=== PATIENT | male | born 1945 | race Caucasian/White ===

== ENCOUNTER → 2020-03-04 | Outpatient (CLI) | payer MEDICARE | LOC: SJCVC 14:27 | PROVIDERS: ATTEND Internal Medicine Cardiovascular Disease | DX: I25.10 Atherosclerotic heart disease of native coronary artery without angina pectoris (principal); I48.91 Unspecified atrial fibrillation; I45.10 Unspecified right bundle-branch block; I10 Essential (primary) hypertension; E78.00 Pure hypercholesterolemia, unspecified; Z79.899 Other long term (current) drug therapy; Z87.891 Personal history of nicotine dependence ==

== ENCOUNTER → 2020-05-25 | Outpatient (CLI) | payer OTHER | LOC: SJCVC 10:30 | PROVIDERS: ATTEND Internal Medicine Cardiovascular Disease | DX: I48.91 Unspecified atrial fibrillation (principal); I25.10 Atherosclerotic heart disease of native coronary artery without angina pectoris; I10 Essential (primary) hypertension; E78.5 Hyperlipidemia, unspecified; E78.00 Pure hypercholesterolemia, unspecified; Z95.5 Presence of coronary angioplasty implant and graft; Z79.82 Long term (current) use of aspirin; Z79.899 Other long term (current) drug therapy; Z87.891 Personal history of nicotine dependence; Z86.16 Personal history of COVID-19 ==

== ENCOUNTER → 2020-06-11 | Outpatient (CLI) | payer OTHER ==
[~2020-06-11] MED LIST: ASA81BEC PO; AVAPRO300 MG PO; CHLORTHALIDONE25 MG PO; CRESTOR40 MG PO; NITROSTAT0.4 M1 SUBLING; NORVASC5 MG PO; OMEPRAZOLE 20 M20 M1 PO; TOPROL XL50 MG PO; XARELTO20 MG PO
[2020-06-11 09:27] LABS: ABSOLUTE NEUTROPHILS 4.1 thou/uL (1.4-8.2); BASOPHILS 1.5 % (0.0-2.0); EOSINOPHILS 4.7 % (0.0-3.0); HEMATOCRIT 45.1 % (42.0-52.0); HEMOGLOBIN 14.6 gm/dL (14.0-18.0); LYMPHOCYTES 23.9 % (24.0-44.0); MCHC 32.3 g/dL (28.0-37.0); MCV 86.7 fL (80.0-100.0); PLATELET COUNT 170 thou/uL (150-400); POLYS 59.9 % (36.0-66.0); RDW 14.4 % (10.5-14.5); WBC 6.9 thou/uL (4.0-11.0)
[2020-06-11 10:03] LABS: ALBUMIN 4.1 g/dL (3.4-5.0); CALCIUM 9.6 mg/dL (8.5-10.1); CREATININE 1.5 mg/dL (0.7-1.3); POTASSIUM 4.4 mmol/L (3.5-5.1); TOTAL BILIRUBIN 0.7 mg/dL (0.2-1.0); TOTAL PROTEIN 7.3 g/dL (6.4-8.2)
== END ==
LOC: CAT 08:51
PROVIDERS: ATTEND Internal Medicine Cardiovascular Disease
DX: Z01.818 Encounter for other preprocedural examination (principal); R91.8 Other nonspecific abnormal finding of lung field; I48.91 Unspecified atrial fibrillation

== ENCOUNTER → 2020-06-11 | Outpatient (CLI) | payer OTHER | LOC: LAB 10:59 | PROVIDERS: ATTEND Internal Medicine Cardiovascular Disease | DX: Z01.812 Encounter for preprocedural laboratory examination (principal); Z20.822 Contact with and (suspected) exposure to COVID-19 ==

== ENCOUNTER → 2020-06-16 | Outpatient (CLI) | payer OTHER ==
[~2020-06-16] VITALS: Ht 182.9 cm; Wt 99.8 kg
--- NOTE | ~2020-06-16 | P ---
[facility] [place] [address] PROCEDURE REPORT Name: STANLEY MURRAY Room #: REG [facility].#: [id number] Admission: 06/16/20 Attend Phys: Bereket Buitrago MD Discharge: Date of : 43 Report #: [id number] THIS REPORT FOR: cc: Meagan Parks Pamela D. DO Couchonnal,Bereket Hope MD ~ DATE OF SERVICE: 06/16/2020 PREOPERATIVE DIAGNOSIS: Atrial fibrillation. POSTOPERATIVE DIAGNOSIS: Atrial fibrillation. HISTORY: The patient is a 75-year-old male with history of recurrent atrial fibrillation, here for ablation. PROCEDURES PERFORMED: 1. Atrial fibrillation ablation, CPT code 46305. 2. 3D mapping, CPT code 37438. 3. Intracardiac echo, CPT code 17552. 4. Focal ablation, CPT code 16222. ANESTHESIA: The patient underwent general anesthesia with no anesthesia related complications. DESCRIPTION OF PROCEDURE: The patient underwent informed consent. We discussed the details of the procedure including the risks, which include but not limited to bleeding, infection, vascular damage, cardiac perforation, stroke, [place]. He understood these risks and is willing to proceed. The patient was brought to EP laboratory in fasting and sedated state, prepped and draped in a sterile fashion. I injected lidocaine to the right groin region, obtained access to the right femoral vein x 3, placing an 8, 9 and 7-Paraguayan short sheath using the modified Seldinger technique. Next, under fluoroscopy, decapolar catheter was placed in the coronary sinus for left atrial pacing and recording and later was positioned at the subclavian vein for phrenic nerve pacing. An intracardiac ultrasound catheter was placed in the right atrium and the patient had nice thin interatrial septum. He had a left common ostium and two right pulmonary veins. These were merged with the cardiac CT scan. Next, at baseline, the patient was in sinus rhythm. He was heparinized and a transseptal was performed using an SL1 sheath and a [place] needle. This was straightforward and then exchanged for the cryo sheath and placed a Lasso catheter into the left atrium. A detailed 3D voltage map and 3D geometry of the left atrium was created and started by isolating the left common ostium with the cryo balloon. Of note, this was a big vessel and my initial attempts to occlude the vein were unsuccessful and given very good temps. Therefore, I decided to [facility] [address] [place] [address] PROCEDURE REPORT Name: STANLEY MURRAY [facility] [id number] Admission: 06/16/20 Attend Phys: Bereket Buitrago MD Discharge: Date of : 43 Report #: [id number] perform a segmental ablation of the common ostium. I performed a total of 5 freezes, each of 4 minutes' duration. Temps were in the mid 30s range. On my final freeze which was along the inferior aspect of the pulmonary vein ostia, the vein isolated within 60 seconds and a 4-minute freeze was performed at this position. Next, I went to the right-sided veins, phrenic nerve pacing was performed from the decapolar catheter. The right superior pulmonary vein underwent a 4-minute freeze and this vein isolated in 65 seconds. Right inferior pulmonary vein underwent a 270-second freeze. This vein isolated within 100 seconds. A repeat voltage map was created and demonstrated that all pulmonary veins were isolated. There were still extensive fractionated atrial signals along the posterior roof region and therefore, I decided to perform a posterior roofline. I performed 4 freezes of the roof anchored from the left common ostium. A repeat voltage map demonstrated that this cleaned up nicely. There were still some slight signals near the common ostium. As such, we obtained a good result and the procedure was concluded. Catheters were pulled to the right atrium. The patient received systemic protamine and then sheaths were pulled and hemostasis was obtained with a [id number] suture deployed to the right groin region. The patient awoke neurologically and hemodynamically intact with no complications and no significant bleeding. CONCLUSIONS: 1. Successful atrial fibrillation ablation with isolation of the pulmonary veins. 2. Successful posterior roofline. By: [id number] Bereket Buitrago MD /nt
[2020-06-16 07:14] VITALS: BP 125/63
[2020-06-16 07:28] LABS: ABSOLUTE NEUTROPHILS 3.5 thou/uL (1.4-8.2); BASOPHILS 1.4 % (0.0-2.0); EOSINOPHILS 4.4 % (0.0-3.0); HEMATOCRIT 42.4 % (42.0-52.0); HEMOGLOBIN 13.9 gm/dL (14.0-18.0); LYMPHOCYTES 28.6 % (24.0-44.0); MCHC 32.7 g/dL (28.0-37.0); MCV 85.5 fL (80.0-100.0); MONOCYTES 10.9 % (1.0-8.0); PLATELET COUNT 162 thou/uL (150-400); POLYS 54.7 % (36.0-66.0); RBC 4.96 mil/uL (4.50-6.00); WBC 6.4 thou/uL (4.0-11.0)
[2020-06-16 07:34] LABS: CALCIUM 9.2 mg/dL (8.5-10.1); CREATININE 1.6 mg/dL (0.7-1.3); POTASSIUM 4.7 mmol/L (3.5-5.1)
[2020-06-16 07:39] LABS: INR 1.1; PROTIME 11.4 Seconds (9.3-11.4)
[2020-06-16 07:40] LABS: ALBUMIN 3.9 g/dL (3.4-5.0); TOTAL BILIRUBIN 0.4 mg/dL (0.2-1.0)
== END | disposition home or self-care (01) ==
LOC: CATH 06:20
PROVIDERS: ATTEND Internal Medicine Cardiovascular Disease
DX: I48.91 Unspecified atrial fibrillation (principal); I10 Essential (primary) hypertension; I25.10 Atherosclerotic heart disease of native coronary artery without angina pectoris; E78.5 Hyperlipidemia, unspecified; Z98.890 Other specified postprocedural states; Z79.899 Other long term (current) drug therapy; Z20.822 Contact with and (suspected) exposure to COVID-19; Z87.891 Personal history of nicotine dependence; Z82.49 Family history of ischemic heart disease and other diseases of the circulatory system; Z79.82 Long term (current) use of aspirin; Z79.01 Long term (current) use of anticoagulants
CPT/HCPCS: 62110; 62900; 65020; 65040; 70005

== ENCOUNTER → 2020-06-24 | Outpatient (CLI) | payer OTHER | LOC: SJCVC 13:33 | PROVIDERS: ATTEND Internal Medicine Cardiovascular Disease | DX: R94.31 Abnormal electrocardiogram [ECG] [EKG] (principal); I45.2 Bifascicular block; I48.0 Paroxysmal atrial fibrillation; I25.10 Atherosclerotic heart disease of native coronary artery without angina pectoris; I45.10 Unspecified right bundle-branch block; I10 Essential (primary) hypertension; E78.5 Hyperlipidemia, unspecified; E78.00 Pure hypercholesterolemia, unspecified; Z86.16 Personal history of COVID-19; Z87.891 Personal history of nicotine dependence; Z72.89 Other problems related to lifestyle; Z79.899 Other long term (current) drug therapy; Z79.82 Long term (current) use of aspirin ==

== ENCOUNTER → 2020-08-26 | Outpatient (CLI) | payer OTHER | LOC: SJCVC 13:59 | PROVIDERS: ATTEND Internal Medicine Cardiovascular Disease | DX: I45.10 Unspecified right bundle-branch block (principal); R94.31 Abnormal electrocardiogram [ECG] [EKG]; R00.0 Tachycardia, unspecified; I48.3 Typical atrial flutter; I25.10 Atherosclerotic heart disease of native coronary artery without angina pectoris; I48.91 Unspecified atrial fibrillation; I10 Essential (primary) hypertension; E78.5 Hyperlipidemia, unspecified; I25.89 Other forms of chronic ischemic heart disease; Z79.82 Long term (current) use of aspirin; Z79.899 Other long term (current) drug therapy; Z87.891 Personal history of nicotine dependence; Z72.89 Other problems related to lifestyle; Z86.16 Personal history of COVID-19; Z95.5 Presence of coronary angioplasty implant and graft ==

== ENCOUNTER → 2020-08-30 | Outpatient (CLI) | payer OTHER | LOC: LAB 11:42 | PROVIDERS: ATTEND Internal Medicine Cardiovascular Disease | DX: Z01.812 Encounter for preprocedural laboratory examination (principal); Z20.822 Contact with and (suspected) exposure to COVID-19 ==

== ENCOUNTER → 2020-09-03 | Outpatient (CLI) | payer OTHER ==
[~2020-09-03] VITALS: Ht 182.9 cm; Wt 100.0 kg
[2020-09-03 07:31] VITALS: BP 111/87
--- NOTE | 2020-09-03 08:38 | TEE ---
[facility] [place] [address] TRANSESOPHAGEAL ECHOCARDIOGRAM Name: STANLEY MURRAY [id number] Admission: 09/03/20 Attend Phys: Chad Ingram MD, Discharge: Date of : 43 Report #: [id number] THIS REPORT FOR: cc: Meagan Parks Pamela D. DO Lundgren,Chad Lynn MD [facility] ~ APPROVED REPORT Study performed: 09/03/2020 07:39:17 EXAM: Transesophageal Echocardiogram with Doppler and cardioversion Patient Location: Out-Patient Room #: 9 Status: routine BSA: 2.22 HR: 115 bpm BP: 101/72 mmHg Rhythm: Atrial Flutter Other Information Study Quality: Excellent Indications Atrial flutter Echo Enhancing Agent Indication: Rule out Shunt Agent(s) / Amount(s) Used: Agitated Saline 7 cc Procedure After obtaining informed consent, patient underwent transesophageal echo in the [employer]. Type of Sedation : Conscious Sedation Sedation was administered by Rehana Magana RN. Sedation start time: 0800 Case end Time: 0810 Sedation was achieved intravenously with: Versed (4 mg) Fentanyl (50 mcg) Transesophageal probe was inserted and advanced into esophagus without difficulty by Chad Ingram MD. Echo enhancement indication: R/O Septal defect. Echo enhancement agent administered: Agitated Saline The CHANDNI was performed without complications. Synchronized Cardioversion acheived with 20 Joules after [address] [facility] [place] [address] [place] [address] TRANSESOPHAGEAL ECHOCARDIOGRAM Name: STANLEY MURRAY Room #: REG [facility]#: [id number] Admission: 09/03/20 Attend Phys: Chad Ingram, Discharge: Date of : 43 Report #: [id number] attempt(s). Rhythm following Synchronized Cardioversion: Normal Sinus Rhythm Throughout the procedure, the blood pressure, pulse oximetry, cardiac rhythm, and rate were monitored. The patient tolerated the procedure without adverse effects. Recovery from conscious sedation was uneventful and vital signs were stable. Left Ventricle The left ventricle is normal size. There is normal LV segmental wall motion. There is normal left ventricular wall thickness. The left ventricular systolic function is normal. The left ventricular ejection fraction is within the normal range. LVEF is 55-60%. Right Ventricle The right ventricle is normal size. The right ventricular systolic function is normal. Atria Left atrium is dilated. No thrombus is visualized in the left atrium or appendage. No shunting by contrast bubble injection Right atrium is dilated. Aortic Valve The aortic valve is normal in structure, trileaflet. No aortic regurgitation is present. There is no aortic valvular stenosis. Mitral Valve The mitral valve is normal in structure. Mild mitral regurgitation. No evidence of mitral valve stenosis. Tricuspid Valve The tricuspid valve is normal in structure. Trace to mild tricuspid regurgitation. Pulmonic Valve The pulmonary valve is normal in structure. There is no pulmonic valvular regurgitation. Great Vessels The aortic root is normal in size. IVC is normal in size and collapses >50% with inspiration. Pericardium There is no pericardial effusion. [facility] [address] [place] [address] TRANSESOPHAGEAL ECHOCARDIOGRAM Name: STANLEY MURRAY Room #: REG [facility].#: [id number] Admission: 09/03/20 Attend Phys: Chad Ingram, Discharge: Date of : 43 Report #: [id number] <Conclusion> The left ventricular systolic function is normal. There is normal LV segmental wall motion. LVEF is 55-60%. Both atria are dilated. No thrombus is visualized in the left atrium or appendage. No shunting by contrast bubble injection The aortic valve is normal in structure, trileaflet. No aortic regurgitation or stenosis The mitral valve is normal in structure. Mild mitral regurgitation. There is no pericardial effusion. Successful cardioversion of atrial flutter to sinus rhythm following a single 20 J biphasic, synchronous shock <ELECTRONICALLY SIGNED> By: Chad Ingram MD, [facility] 09/03/2038 7 7 Chad Ingram MD, FACC /INF
== END | disposition home or self-care (01) ==
LOC: CATH 06:25
PROVIDERS: ATTEND Internal Medicine
DX: I48.92 Unspecified atrial flutter (principal); I08.1 Rheumatic disorders of both mitral and tricuspid valves; I10 Essential (primary) hypertension; I25.10 Atherosclerotic heart disease of native coronary artery without angina pectoris; E78.5 Hyperlipidemia, unspecified; E66.9 Obesity, unspecified; Z98.890 Other specified postprocedural states; Z79.899 Other long term (current) drug therapy; Z79.01 Long term (current) use of anticoagulants; Z87.891 Personal history of nicotine dependence

== ENCOUNTER → 2020-09-21 | Outpatient (CLI) | payer OTHER ==
--- NOTE | ~2020-09-21 | P ---
[facility] [place] [address] PROCEDURE REPORT Name: STANLEY MURRAY Room #: REG [facility].#: [id number] Admission: 09/21/20 Attend Phys: Bereket Buitrago MD Discharge: Date of : 43 Report #: [id number] THIS REPORT FOR: cc: Meagan Parks Pamela D. DO Couchonnal, Luis F. MD ~ DOC #: [id number] Bereket Buitrago MD DATE OF SERVICE: 09/24/2020 IMPLANTABLE LOOP RECORDER INSERTION PREOPERATIVE DIAGNOSES: 1. Atrial fibrillation. 2. Presyncope. PROCEDURE PERFORMED: Implantable loop recorder insertion. DESCRIPTION OF PROCEDURE: The patient was prepped and draped in a standard fashion, injected lidocaine at the incision site. Incision was made. Device injected, tested and found to be functioning normally. Single layer of suture was performed and surgical glue was placed to outer skin layer. Dressing was placed. There were no procedural-related complications. The implanted device is a Singularu model #08920, serial #[id number]. CONCLUSION: Successful implantation of an implantable loop recorder. Bereket Buitrago MD LFC/KDA By: [id number] Bereket Buitrago MD /nt
[2020-09-21 07:13] VITALS: BP 121/67
== END | disposition home or self-care (01) ==
LOC: CATH 06:42
PROVIDERS: ATTEND Internal Medicine Cardiovascular Disease
DX: I48.91 Unspecified atrial fibrillation (principal); R55 Syncope and collapse; Z98.890 Other specified postprocedural states; Z79.899 Other long term (current) drug therapy; Z79.01 Long term (current) use of anticoagulants; Z79.82 Long term (current) use of aspirin

== ENCOUNTER → 2020-12-28 | Outpatient (CLI) | payer OTHER | LOC: CAT 10:02 | PROVIDERS: ATTEND Pediatrics | DX: J92.9 Pleural plaque without asbestos (principal); J43.8 Other emphysema; J84.10 Pulmonary fibrosis, unspecified; I25.10 Atherosclerotic heart disease of native coronary artery without angina pectoris; R91.8 Other nonspecific abnormal finding of lung field ==

== ENCOUNTER 2021-01-03 06:21 | Observation (INO) | payer OTHER ==
[~2021-01-03] VITALS: Ht 182.9 cm; Wt 99.8 kg
[2021-01-03 07:07] VITALS: BP 120/78
[2021-01-03] MEDS ORDERED: TOPROL XL100 MG PO (07:13)
[2021-01-03 07:43] LABS: ABSOLUTE NEUTROPHILS 4.2 thou/uL (1.4-8.2); BASOPHILS 1.2 % (0.0-2.0); EOSINOPHILS 3.1 % (0.0-3.0); HEMATOCRIT 43.8 % (42.0-52.0); HEMOGLOBIN 14.5 gm/dL (14.0-18.0); LYMPHOCYTES 26.8 % (24.0-44.0); MCH 27.9 pg (26.0-34.0); MCHC 33.1 g/dL (28.0-37.0); MCV 84.2 fL (80.0-100.0); MONOCYTES 10.7 % (1.0-8.0); PLATELET COUNT 181 thou/uL (150-400); POLYS 58.2 % (36.0-66.0); RDW 13.8 % (10.5-14.5); WBC 7.2 thou/uL (4.0-11.0)
[2021-01-03 07:53] LABS: CALCIUM 8.9 mg/dL (8.5-10.1); CREATININE 1.9 mg/dL (0.7-1.3); POTASSIUM 3.9 mmol/L (3.5-5.1)
[2021-01-03 07:59] LABS: ALBUMIN 3.8 g/dL (3.4-5.0); APTT 29.7 Seconds (24.5-32.8); INR 1.03; PROTIME 11.2 Seconds (10.5-12.1); TOTAL BILIRUBIN 0.5 mg/dL (0.2-1.0); TOTAL PROTEIN 7.2 g/dL (6.4-8.2)
[2021-01-03 19:36] VITALS: BP 109/59
[2021-01-04 04:20] VITALS: BP 107/65
[2021-01-04 04:37] LABS: CALCIUM 8.4 mg/dL (8.5-10.1); CREATININE 1.8 mg/dL (0.7-1.3); POTASSIUM 4.5 mmol/L (3.5-5.1)
--- NOTE | 2021-01-04 05:24 | NUR ---
RECEIVED THE PATIENT CONSCIOUS AND ORIENTED.ON RENA, AIR BREATHING SPONTANEOUSLY.NOT IN PAIN OR DISTRESS.WITH RIGHT GROIN COVERED WITH DRESSING C/D/I.ON IVF HYDRATION.ALL NEEDS ATENDED.SINUS RYTHM ON THE MONITOR.
[2021-01-04 10:01] VITALS: BP 107/65
--- NOTE | 2021-01-04 10:17 | NUR ---
DISCONTINUE IV AND TELE. WILL DISCHARGE TO HOME VIA PRIVATE VEHICLE.
[2021-01-04 10:28] VITALS: BP 107/65
--- NOTE | 2021-01-18 08:44 | P ---
[facility] [place] [address] PROCEDURE REPORT Name: STANLEY MONTERROSO Room #: 208-P [facility] Shahzad Marvin#: [id number] Admission: 01/03/21 Attend Phys: Bereket Buitrago MD Discharge: 01/04/21 Date of : 43 Report #: [id number] THIS REPORT FOR: cc: Meagan Parks Pamela D. DO Couchonnal, Luis F. MD ~ DATE OF PROCEDURE: 01/03/2021. PREOPERATIVE DIAGNOSES: 1. Atrial fibrillation. 2. Atypical atrial flutter. POSTOPERATIVE DIAGNOSES: 1. Atrial fibrillation. 2. Atypical atrial flutter. PROCEDURE PERFORMED: 1. AFib ablation -- CPT code 71971. 2. Program stimulation pacing after IV drug infusion, CPT code 56971. 3. 3D mapping, CPT code 88075. 4. Intracardiac echo, CPT code 06289. 5. Second pathway ablation -- CPT code 35621. HISTORY: Mr. Stanley Monterroso is a 75-year-old male who underwent atrial fibrillation ablation back on 06/16/2020. The patient has had a clinical recurrence of atrial fibrillation and atrial flutter and is here for repeat ablation. ANESTHESIA: The patient underwent general anesthesia with no anesthesia related complications. DESCRIPTION OF PROCEDURE: The patient underwent informed consent. We discussed the details of the procedure including the risks, which include but not limited to bleeding, vascular damage, stroke, [place], cardiac perforation. He understood these risks and is willing to proceed. The patient was brought to the EP laboratory in a fasting and sedated state and prepped and draped in a standard fashion. Prior to initiation of the procedure, he was already in what appeared to be an atypical atrial flutter. I obtained access in the right femoral vein x3, placing an 8, 9 and 7-Spanish short sheath. Under fluoroscopy, I placed a decapolar catheter into the coronary sinus and ICE catheter into the right atrium. The patient appeared to be in an atypical atrial flutter with an atrial cycle length of 250 milliseconds with a vertical activation along the CS catheter. Ventricular cycle length was 500 milliseconds. The HV interval was noted to be 39 milliseconds. I quickly created a right-sided activation map and this clearly showed that we did not have the entire cycle length in the right [facility] [address] [place] [address] PROCEDURE REPORT Name: STANLEY MONTERROSO Room #: 208-P [facility] Shahzad Sanju.#: [id number] Admission: 01/03/21 Attend Phys: Bereket Buitrago MD Discharge: 01/04/21 Date of : 43 Report #: [id number] atrium and it appeared to be left-sided in nature. Therefore, the patient was systemically heparinized. Transseptal was performed using an Agilis sheath and a Gil[place] needle, which was straightforward and then I placed the PentaRay into the left atrium and created a 3D geometry and voltage map. This showed that all 4 veins remained isolated and it appeared that the flutter circuit was arising from scar tissue along the posterior wall. It appeared that the patient had a roofline mediated atrial flutter. In fact, when I placed the ablation catheter at the roof near the left superior pulmonary vein, entrainment demonstrated a PPI minus tachycardia cycle length of 0. There was a narrow channel along the posterior wall that had very fractionated signals, and when I placed the ablation catheter at this site, the tachycardia terminated. Therefore, this appeared to be the critical isthmus. Ablation was performed along this location. Posterior wall isolation: Given the extensive fractionated atrial signals along the posterior wall, it appeared that the patient likely used this substrate for other atypical atrial flutters; therefore, I decided to proceed with posterior wall isolation. I performed a roofline in an inferior line connecting the right and left veins. Post-ablation, a repeat voltage map was performed and this demonstrated that the posterior wall was now isolated. Esophageal temperatures were closely monitored and ablation lesions over the esophagus were of shorter duration. EP study: Post-ablation EP study was then performed. AV block was noted at 320 milliseconds. Atrial ERP was noted at 220 milliseconds and [address] cycle length. Double atrial extrastimuli were delivered and no SVTs were induced. Isoproterenol infusion was initiated at 2 mcg per minute and AV block was noted at 260 milliseconds and aggressive atrial pacing was performed and I could not induce any AFib or atrial flutter. As such, the procedure was concluded. There was no evidence of pericardial effusion via intracardiac ultrasound. The patient received systemic protamine, and once the ACT was within acceptable range, catheters and sheaths were pulled and hemostasis was obtained. The patient awoke neurologically and hemodynamically intact. No complications and no significant bleeding. CONCLUSION: 1. Successful ablation of a roof mediated atypical atrial flutter. 2. Successful posterior wall isolation. 3. Persistent isolation of all pulmonary veins from prior ablation. <ELECTRONICALLY SIGNED> By: Bereket Buitrago MD 01/18/21 0844 [id number] [id number] Bereket Buitrago MD /nt
== END 2021-01-04 10:31 | disposition home or self-care (01) ==
LOC: CATH 06:21 → 2N 17:03
PROVIDERS: ADMIT Internal Medicine Cardiovascular Disease; ATTEND Internal Medicine Cardiovascular Disease
DX: I48.91 Unspecified atrial fibrillation (principal); I48.92 Unspecified atrial flutter; Z20.822 Contact with and (suspected) exposure to COVID-19; N17.9 Acute kidney failure, unspecified; I25.10 Atherosclerotic heart disease of native coronary artery without angina pectoris; I10 Essential (primary) hypertension; E78.5 Hyperlipidemia, unspecified; Z79.899 Other long term (current) drug therapy; Z79.82 Long term (current) use of aspirin
CPT/HCPCS: 62110; 62900; 65020; 65130; 70005

== ENCOUNTER → 2021-01-18 | Outpatient (CLI) | payer OTHER ==
[~2021-01-18] MED LIST changes: +TOPROL XL100 MG PO
== END ==
LOC: SJCVC 13:37
PROVIDERS: ATTEND Internal Medicine Cardiovascular Disease
DX: I45.10 Unspecified right bundle-branch block (principal); I25.10 Atherosclerotic heart disease of native coronary artery without angina pectoris; I48.0 Paroxysmal atrial fibrillation; I10 Essential (primary) hypertension; E78.5 Hyperlipidemia, unspecified; R06.00 Dyspnea, unspecified; R68.89 Other general symptoms and signs; E78.00 Pure hypercholesterolemia, unspecified; Z86.16 Personal history of COVID-19; Z79.899 Other long term (current) drug therapy; Z79.82 Long term (current) use of aspirin; Z87.891 Personal history of nicotine dependence; Z72.89 Other problems related to lifestyle

== ENCOUNTER → 2021-04-05 | Outpatient (CLI) | payer OTHER | LOC: SJCVCIMAG 08:28 | PROVIDERS: ATTEND Internal Medicine Cardiovascular Disease | DX: I48.0 Paroxysmal atrial fibrillation (principal); I48.3 Typical atrial flutter; I25.10 Atherosclerotic heart disease of native coronary artery without angina pectoris; I10 Essential (primary) hypertension; E78.5 Hyperlipidemia, unspecified; Z98.61 Coronary angioplasty status; Z79.82 Long term (current) use of aspirin; Z79.899 Other long term (current) drug therapy; E78.00 Pure hypercholesterolemia, unspecified; I25.9 Chronic ischemic heart disease, unspecified; I45.10 Unspecified right bundle-branch block; Z87.891 Personal history of nicotine dependence ==